=== PATIENT | female | born 1980 | race Caucasian/White ===

== ENCOUNTER 2023-01-25 17:13 | Emergency (ER) | payer BC, OTHER ==
[~2023-01-25] VITALS: Ht 167.6 cm; Wt 83.9 kg
[2023-01-25 17:22] VITALS: BP 125/82
[2023-01-25] MEDS ORDERED: DEXAMETHASONE 10 MG/ML VIAL IM ONE (17:45)
[2023-01-25] MEDS ORDERED: AMOX1TAB8 PO (18:19)
[2023-01-25] MEDS ORDERED: IBUP-2213 PO (18:19)
--- NOTE | 2023-01-25 18:35 | NUR ---
Patient discharged with v/s stable. Written and verbal after PHARYNGITIS care instructions given and explained. Patient verbalized understanding. Ambulatory with steady gait. All questions addressed prior to discharge. Advised to follow up with PMD.
== END 2023-01-25 18:34 | disposition home or self-care (01) ==
LOC: MED 17:13
DX: J02.8 Acute pharyngitis due to other specified organisms (principal); B96.89 Other specified bacterial agents as the cause of diseases classified elsewhere; R03.0 Elevated blood-pressure reading, without diagnosis of hypertension; Z79.899 Other long term (current) drug therapy
CPT/HCPCS: 96372; 99283; J1100